=== PATIENT | female | born 2000 | race Caucasian/White ===

== ENCOUNTER 2018-05-26 02:03 | Emergency (ER) | payer OTHER ==
[~2018-05-26] VITALS: Ht 162.6 cm; Wt 52.2 kg
--- NOTE | 2018-05-26 02:14 | NUR ---
Dr. Celaya at bedside for MSE.
[2018-05-26] MEDS ORDERED: LORAZEPAM 1 MG TABLET ONE (02:23)
[2018-05-26] MEDS ORDERED: LORAZEPAM 0.5 MG TABLET PO ONE (02:30)
--- NOTE | 2018-05-26 02:42 | NUR ---
Patient discharged to home in stable conditon. Written and verbal after care instructions given. Patient verbalizes understanding of instructions. Taken home by father.
[2018-05-26 02:43] VITALS: BP 108/61
== END 2018-05-26 02:46 | disposition home or self-care (01) ==
LOC: ER 02:07
DX: F41.9 Anxiety disorder, unspecified (principal); F12.929 Cannabis use, unspecified with intoxication, unspecified
CPT/HCPCS: 99284; A4663